=== PATIENT | female | born 1955 | race Caucasian/White ===

== ENCOUNTER → 2018-04-04 | Day surgery (SDC) | payer OTHER ==
[~2018-04-04] MED LIST: ALPRAZOLAM0.5 M4 PO; ASPIRIN EC81 M1 PO; COLESTID1 G1 PO; EDARBI40 M1 PO; FLONASE ALLERG9.9 ML NASB; INVOKANA100 M1 PO; LYRICA150 M1 PO; METFORMIN HCL750 M1 PO; PRAVACHOL20 M2 PO; SYNTHROID100 MCG PO; TRAMADOL HCL50 M1 PO; VICTOZA 2-0.6 MG/0.1 SC
--- NOTE | 2018-04-04 10:47 | Operative Report ---
Operative/Inv Procedure Report Surgery Date: 04/04/18 Name of Procedure: Right knee arthroscopy, partial medial meniscectomy, partial lateral meniscectomy, chondroplasty medial femoral condyle and lateral tibial plateau Pre-Operative Diagnosis: Right knee medial and lateral meniscus tear Post-Operative Diagnosis: Right knee medial and lateral meniscus tear Estimated Blood Loss: scant Surgeon/Neurosurgical Nurse: Antonio Corado MD Anesthesia: laryngeal mask airway, block Complications: None Condition: Stable to PACU Operative Indication: This is a 63-year-old female with right knee pain that has failed conservative care. MRI showed meniscal tearing. Risks and benefits of the procedure were discussed with the patient at length. Risks include but are not limited to nerve damage, muscle damage, infection, blood loss, blood clots, pulmonary embolus, and even . The patient agreed to the above risks and elected to proceed with surgery. Operative/Procedure Note Note: The patient was placed supine on the operating room table. A tourniquet was applied. The lower extremity prepped and draped in normal sterile fashion. A timeout was performed before the incision. The site marking was visualized before incision. After the leg was prepped and draped, an Esmarch was used to exsanguinate the extremity. The tourniquet was inflated. A standard inferolateral portal was established with an 11 blade. The camera was inserted. A medial portal was established with a spinal needle and an 11 blade. The diagnostic arthroscopy was then performed which showed the above findings. An upbiter was used to debride the posterior horn of the medial meniscus. A shaver was used to complete the debridement. A stable rim of cartilage was attained. The shaver was then used to perform chondroplasty of the medial femoral condyle. A straight biter was used as well as a shaver to debride the root of the lateral meniscus. The shaver was used to perform a chondroplasty of the lateral tibial plateau. The knee was copiously irrigated. The portal sites were closed with 3-0 nylon suture in a simple interrupted fashion. The knee was injected with 10 mL of 0.25% Marcaine with epinephrine. A dry sterile dressing was applied and the patient was transferred to PACU in stable condition. Findings: Complex tear of the posterior horn medial meniscus. Grade 3 chondral changes over the medial femoral condyle. Medial tibial plateau grade 2 chondral changes. ACL with intrasubstance degeneration. PCL intact. Lateral tibial plateau articular cartilage with grade 2 chondral changes. Lateral femoral condyle with grade 1 chondral changes. Degenerative tearing at the posterior root lateral meniscus. Grade 2 chondral changes on the undersurface of the patella. Grade 1 chondral changes of the trochlea. Suprapatellar synovitis present. No loose bodies noted.
== END ==
LOC: STS 02:42
DX: M23.221 Derangement of posterior horn of medial meniscus due to old tear or injury, right knee (principal); M23.200 Derangement of unspecified lateral meniscus due to old tear or injury, right knee; E11.40 Type 2 diabetes mellitus with diabetic neuropathy, unspecified; Z79.84 Long term (current) use of oral hypoglycemic drugs; I10 Essential (primary) hypertension; E03.9 Hypothyroidism, unspecified; E66.9 Obesity, unspecified; Z68.35 Body mass index [BMI] 35.0-35.9, adult
CPT/HCPCS: 97116-GP; 97161-GP; C9290; J0131; J0690; J2250